=== PATIENT | female | born 1940 | race Caucasian/White ===

== ENCOUNTER → 2016-10-11 08:41 | Outpatient (CLI) | payer MEDICARE ==
[2011-09-05 09:30] VITALS: BMI 32.1
== END | disposition home or self-care (01) ==
LOC: D.MRI 08:41
DX: R26.89 Other abnormalities of gait and mobility (principal)

== ENCOUNTER → 2017-10-31 23:13 | Outpatient (CLI) | payer MEDICARE ==
[2011-09-05 09:30] VITALS: BMI 32.1
== END | disposition home or self-care (01) ==
LOC: D.MAMMO 09:30
DX: Z12.31 Encounter for screening mammogram for malignant neoplasm of breast (principal)

== ENCOUNTER 2018-03-14 02:13 | Emergency (ER) | payer MEDICARE ==
[~2018-03-14] VITALS: Ht 170.2 cm; Wt 89.8 kg
[2018-03-14 02:15] VITALS: Ht 170.2 cm; Wt 89.8 kg
[2018-03-14] MEDS ORDERED: COZAAR100 MG PO (02:17)
[2018-03-14] MEDS ORDERED: NORVASC5 MG PO (02:17)
[2018-03-14] MEDS ORDERED: CIPRO500 MG PO (02:17)
[2018-03-14] MEDS ORDERED: NEURONTIN800 MG PO (02:17)
[2018-03-14 03:01] LABS: BASOPHILS 0.5 % (0-2); EOSINOPHILS 3.6 % (0-7); HEMATOCRIT 44.5 % (36.0-48.0); IMMATURE GRANULOCYTES 0.2 % (0-5); LYMPHOCYTES 21.1 % (15-50); MCH 28.7 pg (26.0-34.0); MCHC 33.7 g/dL (31.0-37.0); MCV 85.2 fL (80.0-100.0); MEAN PLATELET VOLUME 11.7 fL (7.4-10.4); MONOCYTES 6.5 % (2-11); NEUTROPHILS 68.1 % (40-80); RBC 5.22 10x6/uL (4.00-5.40); RDW 13.5 % (11.5-14.5); WBC 11.1 10x3/uL (4.8-10.8)
[2018-03-14 03:02] LABS: APPEARANCE CLEAR (CLEAR); BILIRUBIN NEGATIVE (NEGATIVE); COLOR YELLOW (YELLOW); GLUCOSE NEGATIVE (NEGATIVE); KETONE SMALL mg/dL (NEGATIVE); NITRITE NEGATIVE (NEGATIVE); PROTEIN NEGATIVE (NEGATIVE); UROBILINOGEN NORMAL (NORMAL)
[2018-03-14 03:03] LABS: PLATELET COUNT 215 10x3/uL (130-400)
[2018-03-14 03:07] LABS: ALBUMIN 3.5 g/dL (3.4-5.0); ALKALINE PHOSPHATASE 69 U/L (46-116); ALT (SGPT) 22 U/L (10-68); BILIRUBIN - TOTAL 0.26 mg/dL (0.2-1.3); CALC OSMOLALITY 288 mosm/kg (275-300); CALCIUM 9.4 mg/dL (8.5-10.1); CARBON DIOXIDE 31.6 mmol/L (21.0-32.0); CHLORIDE - SERUM 103 mmol/L (98-107); CREATININE - SERUM 0.9 mg/dL (0.6-1.3); GLUCOSE 128 mg/dL (74-106); POTASSIUM - SERUM 3.9 mmol/L (3.5-5.1); PROTEIN - SERUM 7.9 g/dL (6.4-8.2); SODIUM 144 mmol/L (136-145); UREA NITROGEN 13 mg/dL (7-18); eGFR NON AFRICAN AMERICAN 65 mL/min (90-120)
[2018-03-14 03:10] LABS: AMYLASE - SERUM 26 U/L (25-115); LIPASE 100 U/L (73-393); TROPONIN-I < 0.017 ng/mL (0.000-0.060)
[2018-03-14] MEDS ORDERED: PHENERGAN25 M1 PO (05:29)
[2018-03-14 05:46] VITALS: BP 129/67
== END 2018-03-14 05:46 | disposition home or self-care (01) ==
LOC: D.ER 02:13
PROVIDERS: Emergency Medicine
DX: K52.9 Noninfective gastroenteritis and colitis, unspecified (principal); I10 Essential (primary) hypertension

== ENCOUNTER → 2018-03-21 07:24 | Outpatient (CLI) | payer MEDICARE ==
[2018-03-14 02:15] VITALS: BMI 32.1
[~2018-03-21 07:24] MED LIST: CIPRO500 MG PO; COZAAR100 MG PO; NEURONTIN800 MG PO; NORVASC5 MG PO; PHENERGAN25 M1 PO
== END | disposition home or self-care (01) ==
LOC: D.US 07:24
DX: R10.11 Right upper quadrant pain (principal)

== ENCOUNTER → 2018-04-02 08:57 | Outpatient (CLI) | payer MEDICARE ==
[2018-03-14 02:15] VITALS: BMI 32.1
== END | disposition home or self-care (01) ==
LOC: D.NM 08:57
DX: R10.11 Right upper quadrant pain (principal)

== ENCOUNTER 2018-05-01 11:52 | Emergency (ER) | payer MEDICARE ==
[~2018-05-01] VITALS: Ht 170.2 cm; Wt 85.9 kg
[2018-05-01 12:03] VITALS: BP 125/94; Ht 170.2 cm; Wt 85.9 kg
[2018-05-01] MEDS ORDERED: HYDROCODON-ACE1 EAC2 PO (13:39)
== END 2018-05-01 13:38 | disposition home or self-care (01) ==
LOC: D.ER 11:52
DX: S82.891A Other fracture of right lower leg, initial encounter for closed fracture (principal); X50.1XXA Overexertion from prolonged static or awkward postures, initial encounter; Y93.89 Activity, other specified; Y92.89 Other specified places as the place of occurrence of the external cause

== ENCOUNTER → 2018-05-08 11:23 | Outpatient (CLI) | payer MEDICARE ==
[2018-05-01 12:03] VITALS: BMI 29.6
[~2018-05-08 11:23] MED LIST changes: +HYDROCODON-ACE1 EAC2 PO
== END | disposition home or self-care (01) ==
LOC: D.RAD 11:23
DX: Z86.010 Personal history of colon polyps (principal); R19.4 Change in bowel habit; R10.31 Right lower quadrant pain; R10.32 Left lower quadrant pain